=== PATIENT | male | born 1985 | race Caucasian/White ===

== ENCOUNTER 2019-01-29 09:16 | Day surgery (SDC) | payer BC ==
[~2019-01-29 09:16] MED LIST: CIPROFLOXACIN 400 MG in D5W 200 ML IVPB
[2019-01-29] MEDS ORDERED: IOHEXOL 300MG/ML 30 ML BTL (12:05)
[2019-01-29] MEDS ORDERED: PROPOFOL 20 ML (12:21)
[2019-01-29] MEDS ORDERED: FENTAnyl 50 MCG/ML VIAL (12:22)
[2019-01-29] MEDS ORDERED: MIDAZOLAM 1 MG/ML 2 ML INJ (12:22)
[2019-01-29] MEDS ORDERED: KETOROLAC 30 MG INJ (12:46)
[2019-01-29] MEDS ORDERED: DEXAMETHASONE 4 MG/ML 5 ML INJ (12:46)
[2019-01-29] MEDS ORDERED: ONDANSETRON 4 MG INJ (12:46)
[2019-01-29] MEDS ORDERED: METOCLOPRAMIDE 10 MG INJ (12:46)
[2019-01-29] MEDS ORDERED: ONDANSETRON 4 MG INJ IV (13:00)
[2019-01-29] MEDS ORDERED: FENTAnyl 50 MCG/ML VIAL IV ×2 (13:00)
[2019-01-29] MEDS ORDERED: hydrALAzine 20 MG INJ IV (13:00)
[2019-01-29] MEDS ORDERED: METOCLOPRAMIDE 10 MG INJ IV (13:00)
[2019-01-29] MEDS ORDERED: LABETALOL HCL 20MG INJ IV (13:00)
[2019-01-29] MEDS ORDERED: EPHEDrine SULFATE 50 MG/5 ML SYG IV (13:00)
[2019-01-29] MEDS ORDERED: HYDROmorphONE 1 MG/5 ML IV SYRINGE IV ×2 (13:00)
[2019-01-29] MEDS ORDERED: DIPHENHYDRAMINE 50 MG INJ IV (13:00)
[2019-01-29] MEDS ORDERED: OXYCODONE/ACETAMINOPHEN (5/325) TAB PO (13:00)
[2019-01-29] MEDS: FENTAnyl 50 MCG/ML VIAL IV (13:19)
[2019-01-29] MEDS: HYDROmorphONE 1 MG/5 ML IV SYRINGE IV (13:41)
[2019-01-29] MEDS: MEPERIDINE 25 MG INJ IV (14:07)
[2019-01-29] MEDS: OXYCODONE/ACETAMINOPHEN (5/325) TAB PO (14:44)
== END 2019-01-29 16:14 | disposition home or self-care (01) ==
LOC: SDS 09:16
DX: N20.0 Calculus of kidney (principal); F17.210 Nicotine dependence, cigarettes, uncomplicated
CPT/HCPCS: 52356; 74430; 88300

== ENCOUNTER 2019-02-08 17:07 | Emergency (ER) | payer BC ==
[2019-02-08] MEDS: HYDROCODONE/APAP (10/325) TAB PO (18:12)
[2019-02-08 19:21] LABS: ADD MAN DIFF? NO
[2019-02-08 19:22] LABS: BASOPHILS % 0.3 % (0.0-2.0); EOSINOPHILS # 0.1 10^3/ul (0.0-0.5); EOSINOPHILS % 0.9 % (0.0-7.0); HEMATOCRIT 39.4 % (42.0-52.0); HEMOGLOBIN 13.4 g/dl (14.0-18.0); LYMPHOCYTES # 1.2 10^3/ul (0.8-2.9); LYMPHOCYTES % 10.4 % (15.0-51.0); MEAN CORPUSCULAR HEMOGLOBIN 29.6 pg (29.0-33.0); MEAN PLATELET VOLUME 11.7 fl (7.4-10.4); MONOCYTE # 0.6 10^3/ul (0.3-0.9); MONOCYTES % 5.2 % (0.0-11.0); NEUTROPHIL # 9.8 10^3/ul (1.6-7.5); NEUTROPHILS % 82.7 % (39.0-77.0); PLATELET COUNT 214 10^3/UL (140-415); RED BLOOD COUNT 4.53 10^6/ul (4.70-6.10); RED CELL DISTRIBUTION WIDTH 12.2 % (11.5-14.5)
[2019-02-08 19:22] LABS: WHITE BLOOD COUNT 11.8 10^3/ul (4.8-10.8)
[2019-02-08 19:40] LABS: ANION GAP 8 (5-13); BLOOD UREA NITROGEN 12 mg/dl (7-20); CALCIUM 9.3 mg/dl (8.4-10.2); CARBON DIOXIDE 25 mmol/L (21-31); CHLORIDE 108 mmol/L (97-110); CREATININE 0.99 mg/dl (0.61-1.24); Estimated GFR > 60 mL/min (>60); GLUCOSE 98 mg/dl (70-220); POTASSIUM 3.9 mmol/L (3.5-5.1); SODIUM 141 mmol/L (135-144)
[2019-02-08 20:55] LABS: ADD UMIC YES; UR ASCORBIC ACID NEGATIVE (NEGATIVE); UR BILIRUBIN (Dip) NEGATIVE (NEGATIVE); UR BLOOD (Dip) 3+ mg/dL (NEGATIVE); UR CLARITY CLEAR (CLEAR); UR COLOR STRAW (YELLOW); UR GLUCOSE (Dip) NEGATIVE (NEGATIVE); UR KETONES (Dip) NEGATIVE (NEGATIVE); UR LEUKOCYTE ESTERASE (Dip) 1+ Leu/ul (NEGATIVE); UR NITRITE (Dip) NEGATIVE (NEGATIVE); UR RBC 4 /HPF (0-5); UR SPECIFIC GRAVITY (Dip) 1.004 (1.003-1.030); UR TOTAL PROTEIN (Dip) NEGATIVE (NEGATIVE); UR UROBILINOGEN (Dip) NEGATIVE (NEGATIVE); UR WBC 8 /HPF (0-5)
== END 2019-02-08 21:00 | disposition home or self-care (01) ==
LOC: E/R 21:00
DX: R10.9 Unspecified abdominal pain (principal); F17.210 Nicotine dependence, cigarettes, uncomplicated
CPT/HCPCS: 36415; 74018; 80048; 81001; 85025; 87086; 99284-25